=== PATIENT | female | born 1975 | race African-American/Black ===

== ENCOUNTER 2016-11-17 13:55 | Emergency (ER) | payer OTHER ==
[2016-11-17 14:33] LABS: HEMATOCRIT 42.8 % (36.0-48.0); HEMOGLOBIN 14.7 g/dL (12-16); MCH 29.9 pg (26.0-34.0); MCHC 34.3 g/dL (31.0-37.0); MEAN PLATELET VOLUME 10.7 fL (7.4-10.4); PLATELET COUNT 333 10x3/uL (130-400); RBC 4.92 10x6/uL (4.00-5.40); RDW 11.9 % (11.5-14.5); WBC 9.2 10x3/uL (4.8-10.8)
[2016-11-17 14:36] LABS: APPEARANCE HAZY (CLEAR); COLOR AMBER (YELLOW); LEUKOCYTE ESTERASE NEGATIVE (NEGATIVE); NITRITE NEGATIVE (NEGATIVE)
[2016-11-17 14:37] LABS: BILIRUBIN NEGATIVE (NEGATIVE); GLUCOSE 100 mg/dL (NEGATIVE); KETONE NEGATIVE (NEGATIVE); PROTEIN TRACE mg/dL (NEGATIVE); UROBILINOGEN NORMAL (NORMAL)
[2016-11-17 14:56] LABS: BASOPHILS 2 % (0-2); EOSINOPHILS 1 % (0-7); LYMPHOCYTES 48 % (15-50); MONOCYTES 2 % (2-11); NEUTROPHILS 46 % (40-80); PLATELET ESTIMATE NORMAL
[2016-11-17 14:58] LABS: ALBUMIN 3.7 g/dL (3.4-5.0); ANION GAP 14.6 mmol/L (8-16); BILIRUBIN - TOTAL 0.3 mg/dL (0.2-1.3); CALCIUM 9.1 mg/dL (8.5-10.1); CARBON DIOXIDE 25.2 mmol/L (21.0-32.0); CREATININE - SERUM 1.2 mg/dL (0.6-1.3); PROTEIN - SERUM 7.6 g/dL (6.4-8.2)
[2016-11-17 14:59] LABS: POTASSIUM - SERUM 2.8 mmol/L (3.5-5.1)
[2016-11-17 15:16] LABS: MAGNESIUM - SERUM 1.8 mg/dL (1.8-2.4)
== END 2016-11-17 16:55 | disposition home or self-care (01) ==
LOC: D.ER 13:55
PROVIDERS: Emergency Medicine
DX: R10.9 Unspecified abdominal pain (principal); E87.6 Hypokalemia; E11.9 Type 2 diabetes mellitus without complications; R74.0 Nonspecific elevation of levels of transaminase and lactic acid dehydrogenase [LDH]; I10 Essential (primary) hypertension; K58.9 Irritable bowel syndrome, unspecified; M54.9 Dorsalgia, unspecified; R11.0 Nausea